=== PATIENT | female | born 1995 ===

== ENCOUNTER → 2018-09-30 | Outpatient (CLI) | payer OTHER ==
[2018-10-01 09:31] LABS: Candida species (DNA Probe) Positive (NEGATIVE); G. vaginalis (DNA Probe) Negative (NEGATIVE); T. vaginalis (DNA Probe) Negative (NEGATIVE)
== END | disposition home or self-care (01) ==
LOC: LAB 14:52 → LAB SHORT 14:52
PROVIDERS: Advanced Practice Midwife
DX: N76.0 Acute vaginitis (principal)
CPT/HCPCS: 87480; 87510; 87660

== ENCOUNTER → 2019-04-21 | Outpatient (CLI) | payer OTHER ==
[2019-04-22 06:40] LABS: Candida species (DNA Probe) Negative (NEGATIVE); G. vaginalis (DNA Probe) Positive (NEGATIVE); T. vaginalis (DNA Probe) Negative (NEGATIVE)
== END | disposition home or self-care (01) ==
LOC: LAB 13:48 → LAB SHORT 13:48
PROVIDERS: Advanced Practice Midwife
DX: N76.0 Acute vaginitis (principal)
CPT/HCPCS: 87480; 87510; 87660

== ENCOUNTER → 2019-05-22 | Outpatient (CLI) | payer OTHER ==
[2019-05-23 10:36] LABS: Candida species (DNA Probe) Negative (NEGATIVE); G. vaginalis (DNA Probe) Positive (NEGATIVE); T. vaginalis (DNA Probe) Negative (NEGATIVE)
== END | disposition home or self-care (01) ==
LOC: LAB SHORT 13:48 → LAB 13:48
PROVIDERS: Advanced Practice Midwife
DX: N76.0 Acute vaginitis (principal)
CPT/HCPCS: 87480; 87510; 87660

== ENCOUNTER → 2019-06-05 | Outpatient (CLI) | payer OTHER ==
[2019-06-06 11:54] LABS: Candida species (DNA Probe) Negative (NEGATIVE); G. vaginalis (DNA Probe) Positive (NEGATIVE); T. vaginalis (DNA Probe) Negative (NEGATIVE)
== END | disposition home or self-care (01) ==
LOC: LAB 12:06 → LAB SHORT 12:06
PROVIDERS: Advanced Practice Midwife
DX: N76.0 Acute vaginitis (principal)
CPT/HCPCS: 87480; 87510; 87660

== ENCOUNTER → 2020-01-22 | Outpatient (CLI) | payer OTHER ==
[2020-01-23 11:53] LABS: Candida species (DNA Probe) Negative (NEGATIVE); G. vaginalis (DNA Probe) Positive (NEGATIVE); T. vaginalis (DNA Probe) Negative (NEGATIVE)
== END | disposition home or self-care (01) ==
LOC: LAB SHORT 13:30 → LAB 13:30
PROVIDERS: Advanced Practice Midwife
DX: N76.0 Acute vaginitis (principal)
CPT/HCPCS: 87480; 87510; 87660

== ENCOUNTER → 2022-03-08 | Outpatient (CLI) | payer OTHER ==
[2022-03-10 04:08] LABS: CHLAMYDIA TRACHOMATIS, NAA Negative (Negative)
== END | disposition home or self-care (01) ==
LOC: LAB 15:35 → LAB SHORT 15:35
PROVIDERS: Registered Nurse Community Health
DX: Z34.02 Encounter for supervision of normal first pregnancy, second trimester (principal)
CPT/HCPCS: 87491; 87591

== ENCOUNTER → 2022-04-11 | Outpatient (CLI) | payer OTHER | LOC: LAB SHORT 15:20 | DX: Z34.02 Encounter for supervision of normal first pregnancy, second trimester (principal) ==

== ENCOUNTER → 2022-06-06 | Outpatient (CLI) | payer OTHER ==
[2022-06-06 18:58] LABS: Hematocrit 36.1 % (33.0-51.0); Hemoglobin 12.4 g/dL (11.5-16.0)
== END | disposition home or self-care (01) ==
LOC: LAB 16:06 → LAB SHORT 16:06
PROVIDERS: Registered Nurse Community Health
DX: Z34.02 Encounter for supervision of normal first pregnancy, second trimester (principal)
CPT/HCPCS: 82950; 85014; 85018

== ENCOUNTER → 2022-07-25 | Outpatient (CLI) | payer OTHER | END | disposition home or self-care (01) | LOC: LAB SHORT 10:40 → LAB 10:40 | DX: Z34.02 Encounter for supervision of normal first pregnancy, second trimester (principal) | CPT/HCPCS: 87081; 87150 ==

== ENCOUNTER 2022-08-28 13:05 | Inpatient (IN) | payer OTHER ==
[~2022-08-28] VITALS: Ht 157.5 cm; Wt 68.0 kg
[2022-08-28] MEDS ORDERED: PRENATAL TABLE1 EAC2 PO (15:07)
[2022-08-28 16:15] LABS: BASOPHILS ABSOLUTE AUTO 0.02 K/mm3 (0.00-0.23); BASOPHILS PERCENT AUTO 0 % (0-2); EOSINOPHILS ABSOLUTE AUTO 0.14 K/mm3 (0.00-0.68); EOSINOPHILS PERCENT AUTO 1 % (0-6); Hematocrit 38.4 % (33.0-51.0); Hemoglobin 13.6 g/dL (11.5-16.0); IMMATURE GRAN ABSOLUTE AUTO 0.07 K/mm3 (0.00-0.10); IMMATURE GRAN PERCENT AUTO 1 % (0-1); LYMPHOCYTES ABSOLUTE AUTO 1.13 K/mm3 (0.84-5.20); LYMPHOCYTES PERCENT AUTO 9 % (21-46); MONOCYTES ABSOLUTE AUTO 0.65 K/mm3 (0.16-1.47); MONOCYTES PERCENT AUTO 5 % (4-13); Mean Corpuscular HGB 32.3 pg (26.0-34.0); Mean Corpuscular HGB Conc 35.4 g/dL (31.5-36.5); Mean Corpuscular Volume 91 fL (80-100); Mean Platelet Volume 12.9 fL (9.1-12.4); NEUTROPHILS ABSOLUTE AUTO 10.55 K/mm3 (1.96-9.15); NEUTROPHILS PERCENT AUTO 84 % (41-73); Platelet Count 159 K/mm3 (150-400); RDW Coefficient Variation 12.7 % (11.7-14.2); RDW Standard Deviation 41.8 fL (35.1-46.3); Red Blood Cell Count 4.21 M/mm3 (3.80-5.20); White Blood Cell Count 12.56 K/mm3 (4.00-11.30)
[2022-08-28 21:28] LABS: PCO2 Cord - Arterial 89.7 mmHg (40-50); pH Cord - Arterial 6.97 (7.28-7.35)
[2022-08-28 21:29] LABS: PO2 Cord - Arterial < 16 mmHg (16-20)
[2022-08-28 21:30] LABS: PCO2 Cord - Venous 69.9 mmHg (40-50); PO2 Cord - Venous 16.9 mmHg (28-32); pH Umbilical Cord - Venous 7.05 (7.26-7.35)
[2022-08-29 05:35] LABS: Hematocrit 29.2 % (33.0-51.0); Hemoglobin 10.5 g/dL (11.5-16.0); Mean Corpuscular HGB 32.7 pg (26.0-34.0); Mean Corpuscular Volume 91 fL (80-100); Mean Platelet Volume 12.7 fL (9.1-12.4); Platelet Count 151 K/mm3 (150-400); RDW Coefficient Variation 12.6 % (11.7-14.2); RDW Standard Deviation 41.1 fL (35.1-46.3); Red Blood Cell Count 3.21 M/mm3 (3.80-5.20); White Blood Cell Count 15.14 K/mm3 (4.00-11.30)
--- NOTE | 2022-08-29 07:42 | NUR ---
BREAKFAST TRAY SERVED. PT SLEEPING. REQUESTED RN RETURN LATER FOR ASSESSMENT. DENIES PAIN AT THIS TIME.
--- NOTE | 2022-08-29 08:49 | NUR ---
UP AMBULATING IN THE HALLS TO NURSERY. IRIS RICHARDSON.
--- NOTE | 2022-08-29 09:50 | NUR ---
PT AND S.O. REMAIN IN NURSERY WITH NB. IRIS WELL. NO COMPLAINTS
--- NOTE | 2022-08-29 11:17 | NUR ---
1020: PT CALLED RN TO ROOM TO REPORT A SMALL BLOOD CLOT NOTED WHEN CHANGING HER PAD. SMALL CLOT NOTED IN TRASH CAN. PT TO BED. LOCHIA SCANT. FUNDUS FIRM. ICE PACK TO PERINEUM PROVIDED FOR COMFORT. WILL ASSESS BLEEDING FOR AN HOUR. 1115: LOCHIA SCANT. PT UP TO AMBULATE TO NURSERY. IRIS WELL.
--- NOTE | 2022-08-30 12:44 | NUR ---
EXPLAINED TO PT BOARDER STATUS AND THE FOOD COUPONS, MOM IS GOING TO FINISH EATING RIGHT NOW THEN SHE IS GOING TO TAKE A NAP, AFTER THE NAP SHE IS AWARE WE WILL GET HER DISCHARGED
--- NOTE | 2022-08-30 13:48 | NUR ---
AGREE WITH ASSESSMENT NANDA RNC
--- NOTE | 2022-08-30 17:58 | NUR ---
PATIENT DISCHARGED TO BOARDER STATUS. VS WNL. DISCHARGE TEACHING PROVIDED AND QUESTIONS ANSWERED.
== END 2022-08-30 18:00 | disposition home or self-care (01) | DRG 807 ==
LOC: BC 13:05 → OBS 13:05 → BC 16:07
PROVIDERS: ADMIT Registered Nurse Community Health
PROC: 10E0XZZ Delivery of Products of Conception, External Approach (ICD-10-PCS; principal; 2022-08-28)
PROC: 4A1HXCZ Monitoring of Products of Conception, Cardiac Rate, External Approach (ICD-10-PCS; 2022-08-28)
PROC: 0UQMXZZ Repair Vulva, External Approach (ICD-10-PCS; 2022-08-28)
DX: O48.0 Post-term pregnancy (principal); Z37.0 Single live birth; Z67.10 Type A blood, Rh positive; Z28.82 Immunization not carried out because of caregiver refusal; O70.0 First degree perineal laceration during delivery; Z3A.41 41 weeks gestation of pregnancy; Z98.818 Other dental procedure status; Z79.899 Other long term (current) drug therapy
CPT/HCPCS: 36415; 59025; 82803; 85025; 85027; 86850; 86900; 86901; A9270; J1885; J2405; J2590; J3010; J7120

== ENCOUNTER → 2022-10-18 | Outpatient (CLI) | payer OTHER ==
[~2022-10-18] MED LIST: PRENATAL TABLE1 EAC2 PO
== END | disposition home or self-care (01) ==
LOC: LAB 14:00 → LAB SHORT 14:00
PROVIDERS: Registered Nurse Community Health
DX: Z12.4 Encounter for screening for malignant neoplasm of cervix (principal)
CPT/HCPCS: G0145